=== PATIENT | male | born 1955 | race Caucasian/White ===

== ENCOUNTER → 2017-10-31 | Outpatient (REF) ==
[~2017-10-31] MED LIST: ACIPHEX20 MG PO; ADVAIR IH; CELEBREX50 MG PO; CIPRO500 MG PO; DIFLUCAN100 MG PO; IBUPROFEN; LORTAB 5/500 501 TAB PO; NASONEX SPRAY; NEOMYCIN AND PO10 ML OP; SOMA250 MG PO; TETRACYCLINE H100 MG PO; TYLENOL ARTHRITIS; VITAB-C1 TAB PO
[2017-10-31 18:25] LABS: THYROID STIMULATING HORMONE 4.77 uIU/mL (0.465-4.680)
== END ==
LOC: ZLAB.WCH 17:39
PROVIDERS: Family Medicine
DX: Z01.89 Encounter for other specified special examinations (principal)